=== PATIENT | male | born 1980 | race Hispanic/Latino ===

== ENCOUNTER 2017-10-21 14:05 | Outpatient (CLI) | payer OTHER | END 2017-10-21 14:06 | disposition home or self-care (01) | LOC: BICRAD 14:05 | PROVIDERS: ATTEND Family Medicine | DX: R76.11 Nonspecific reaction to tuberculin skin test without active tuberculosis (principal) | CPT/HCPCS: 71046 ==

== ENCOUNTER 2022-12-23 07:32 | Outpatient (CLI) | payer BC ==
[2022-12-23] MEDS ORDERED: Iopamidol-370 76% 500 ML 1 ML ONE (11:31)
== END 2022-12-23 07:33 | disposition home or self-care (01) ==
LOC: BICCT 07:32
PROVIDERS: ATTEND Nurse Practitioner Family
DX: R10.11 Right upper quadrant pain (principal); K21.9 Gastro-esophageal reflux disease without esophagitis; R19.7 Diarrhea, unspecified; R14.0 Abdominal distension (gaseous)
CPT/HCPCS: 74178; Q9967

== ENCOUNTER 2025-09-12 08:22 | Outpatient (CLI) | payer BC | END 2025-09-12 08:23 | disposition home or self-care (01) | LOC: BICRAD 08:22 | PROVIDERS: ATTEND Family Medicine | DX: M25.561 Pain in right knee (principal) ==